=== PATIENT | female | born 1980 | race Caucasian/White ===

== ENCOUNTER 2021-03-24 11:03 | Emergency (ER) | payer BC ==
[~2021-03-24] VITALS: Ht 160 cm; Wt 62.6 kg
[2021-03-24] MEDS ORDERED: PROVENTIL HFA6.7 GM INH (13:29)
[2021-03-24] MEDS ORDERED: PREDNISONE20 M1 PO (13:29)
== END 2021-03-24 14:17 | disposition home or self-care (01) ==
LOC: ED 11:03
DX: J20.8 Acute bronchitis due to other specified organisms (principal); Z20.822 Contact with and (suspected) exposure to COVID-19